=== PATIENT | male | born 1940 | race Caucasian/White ===

== ENCOUNTER 2016-07-07 09:19 | Outpatient (CLI) | payer MEDICARE ==
[2016-07-07 12:49] LABS: Hemoglobin A1c 7.8 % (4.0-6.0)
[2016-07-07 13:09] LABS: Anion Gap 14 mmol/L (10-20); BUN (Urea Nitrogen) 21 mg/dL (8.4-25.7); Calc. Creatinine Clearance 0 mL/min (70-130); Calcium 8.7 mg/dL (7.8-10.44); Carbon Dioxide 20 mmol/L (23-31); Chloride 111 mmol/L (98-107); Estimated GFR-MDRD 55; LDL Cholesterol, Calculated 139 mg/dL
== END 2016-07-07 09:20 | disposition home or self-care (01) ==
LOC: NAVSJIPCSP 09:19
PROVIDERS: ATTEND Internal Medicine
DX: I25.10 Atherosclerotic heart disease of native coronary artery without angina pectoris (principal); E11.52 Type 2 diabetes mellitus with diabetic peripheral angiopathy with gangrene; N18.3 Chronic kidney disease, stage 3 (moderate); Z79.899 Other long term (current) drug therapy
CPT/HCPCS: 36415; 80048; 80061; 83036

== ENCOUNTER 2016-10-14 09:25 | Outpatient (CLI) | payer MEDICARE ==
[2016-10-14 12:45] LABS: Hemoglobin A1c 8.9 % (4.0-6.0)
[2016-10-14 12:59] LABS: Anion Gap 16 mmol/L (10-20); BUN (Urea Nitrogen) 30 mg/dL (8.4-25.7); Calc. Creatinine Clearance 0 mL/min (70-130); Calcium 9.2 mg/dL (7.8-10.44); Carbon Dioxide 24 mmol/L (23-31); Cardiac Risk 4.5 (Less than 4.5); Chloride 106 mmol/L (98-107); Cholesterol 144 mg/dL (< 200 Desired); Estimated GFR-MDRD 41; Glucose 87 mg/dL (83-110); HDL Cholesterol 32 mg/dL (>60 Neg Risk); LDL Cholesterol, Calculated 89 mg/dL; Potassium 4.7 mmol/L (3.5-5.1); Sodium 141 mmol/L (136-145); Triglycerides 113 mg/dL (Less than 150)
[2016-10-14 13:50] LABS: #Basophils 0.1 thou/uL (0.0-0.2); #Eosinphils 0.2 thou/uL (0.0-0.7); #Lymphocytes 1.5 thou/uL (1.20-3.40); #Monocytes 0.7 thou/uL (0.11-0.59); #Neutrophils 3.9 thou/uL (1.40-6.50); %Basophils 1.3 % (0.0-1.0); %Eosinophils 3.4 % (0.0-10.0); %Monocytes 10.3 % (0.0-10.0); Hemoglobin 12.6 g/dL (14.0-18.0); Mean Corpuscular HGB CONC 32.6 g/dL (32.0-36.0); Mean Corpuscular Hemoglobin 27.4 pg (27.0-31.0); Mean Platelet Volume 7.9 fL (7.4-10.4); Platelet Count 223 thou/uL (130-400); RBC Distribution Width 12.8 % (11.5-14.5); Red Blood Cell (RBC) Count 4.61 mill/uL (4.70-6.10); White Blood Cell (WBC) Count 6.4 thou/uL (4.8-10.8)
[2016-10-14 14:15] LABS: ALT (SGPT) 13 U/L (0-55); AST (SGOT) 14 U/L (5-34); Albumin 4.2 g/dL (3.4-4.8); Alkaline Phosphatase 63 U/L (40-150); Bilirubin, Total 0.4 mg/dL (0.2-1.2); CRP (Inflammatory) Less than 0.50 mg/dL (= or < 0.5); Globulin 2.2 g/dL (2.4-3.5); Protein, Total 6.4 g/dL (5.8-8.1)
[2016-10-15 18:55] LABS: Creatinine, Urine 127.58 mg/dL (63-166); Microalbumin Urine 3.8 mg/dL (0.5-50.0); Microalbumin/Creat Ratio 29.8 mg/g (Less than 30)
== END 2016-10-14 09:26 | disposition home or self-care (01) ==
LOC: NAVSJIPCSP 09:25
PROVIDERS: ATTEND Internal Medicine
DX: E78.5 Hyperlipidemia, unspecified (principal); I11.0 Hypertensive heart disease with heart failure; E11.52 Type 2 diabetes mellitus with diabetic peripheral angiopathy with gangrene; Z79.899 Other long term (current) drug therapy
CPT/HCPCS: 36415; 80053; 80061; 82043; 83036; 85025; 85652; 86140

== ENCOUNTER 2016-11-24 10:49 | Outpatient (CLI) | payer MEDICARE ==
[2016-11-24 12:49] LABS: #Basophils 0.1 thou/uL (0.0-0.2); #Eosinphils 0.2 thou/uL (0.0-0.7); #Lymphocytes 1.1 thou/uL (1.20-3.40); #Monocytes 0.6 thou/uL (0.11-0.59); #Neutrophils 3.7 thou/uL (1.40-6.50); %Basophils 1.4 % (0.0-1.0); %Eosinophils 3.4 % (0.0-10.0); %Lymphocytes 19.3 % (21.0-51.0); %Neutrophils 65.8 % (42.0-75.0); Hemoglobin 12.8 g/dL (14.0-18.0); Mean Corpuscular HGB CONC 32.6 g/dL (32.0-36.0); Mean Corpuscular Hemoglobin 27.2 pg (27.0-31.0); Mean Corpuscular Volume 83.4 fl (80.0-94.0); Mean Platelet Volume 9.5 fL (7.4-10.4); Platelet Count 213 thou/uL (130-400); RBC Distribution Width 12.7 % (11.5-14.5); Red Blood Cell (RBC) Count 4.71 mill/uL (4.70-6.10); White Blood Cell (WBC) Count 5.6 thou/uL (4.8-10.8)
[2016-11-24 12:55] LABS: ALT (SGPT) 13 U/L (8-55); AST (SGOT) 12 U/L (5-34); Alkaline Phosphatase 66 U/L (40-150); Anion Gap 16 mmol/L (10-20); BUN (Urea Nitrogen) 27 mg/dL (8.4-25.7); Bilirubin, Total 0.3 mg/dL (0.2-1.2); Calc. Creatinine Clearance 0 mL/min (70-130); Calcium 9.1 mg/dL (7.8-10.44); Carbon Dioxide 22 mmol/L (23-31); Chloride 103 mmol/L (98-107); Estimated GFR-MDRD 38; Globulin 2.4 g/dL (2.4-3.5); Glucose 302 mg/dL (83-110); Potassium 4.7 mmol/L (3.5-5.1); Protein, Total 6.4 g/dL (5.8-8.1); Sodium 136 mmol/L (136-145)
== END 2016-11-24 10:50 | disposition home or self-care (01) ==
LOC: NAVSJIPCSP 10:49
PROVIDERS: ATTEND Internal Medicine
DX: I25.10 Atherosclerotic heart disease of native coronary artery without angina pectoris (principal); I13.10 Hypertensive heart and chronic kidney disease without heart failure, with stage 1 through stage 4 chronic kidney disease, or unspecified chronic kidney disease; N18.2 Chronic kidney disease, stage 2 (mild); Z79.899 Other long term (current) drug therapy
CPT/HCPCS: 36415; 80053; 83880; 85025

== ENCOUNTER 2017-01-12 09:25 | Outpatient (CLI) | payer MEDICARE ==
[2017-01-12 12:51] LABS: Anion Gap 18 mmol/L (10-20); BUN (Urea Nitrogen) 36 mg/dL (8.4-25.7); Calc. Creatinine Clearance 0 mL/min (70-130); Calcium 8.9 mg/dL (7.8-10.44); Carbon Dioxide 18 mmol/L (23-31); Cardiac Risk 5.9 (Less than 4.5); Chloride 104 mmol/L (98-107); Cholesterol 160 mg/dl (< 200 Desired); Estimated GFR-MDRD 36; Glucose 211 mg/dL (83-110); HDL Cholesterol 27 mg/dL (>60 Neg Risk); LDL Cholesterol, Calculated 82 mg/dL; Potassium 4.7 mmol/L (3.5-5.1); Sodium 135 mmol/L (136-145); Triglycerides 256 mg/dL (Less than 150)
== END 2017-01-12 09:26 | disposition home or self-care (01) ==
LOC: NAVSJIPCSP 09:25
PROVIDERS: ATTEND Internal Medicine
DX: E78.5 Hyperlipidemia, unspecified (principal); N18.3 Chronic kidney disease, stage 3 (moderate); E11.52 Type 2 diabetes mellitus with diabetic peripheral angiopathy with gangrene; Z79.899 Other long term (current) drug therapy
CPT/HCPCS: 36415; 80048; 80061; 83036

== ENCOUNTER 2019-11-17 11:30 | Outpatient (CLI) | payer MEDICARE ==
--- NOTE | 2019-11-17 12:08 | RAD ---
Exam: XR Ankle Rt 3 View STANDARD HISTORY: Right ankle pain. COMPARISON: None FINDINGS: There is diffuse subcutaneous soft tissue swelling about the ankle and visualized dorsal aspect of th e visualized midfoot. No acute fracture, dislocation, or other acute osseous abnormality is identified. Posterior and plantar calcaneal enthesophytes are identified. IMPRESSION: 1. Diffuse subcutaneous soft tissue swelling. 2. No acute osseous abnormality right ankle pain
--- NOTE | 2019-11-17 12:50 | RAD ---
3 VIEWS RIGHT FOOT: Date: 11/17/2019 COMPARISON: None. HISTORY: Right foot and ankle pain. FINDINGS: 3 views of the right foot show no evidence of acute fracture or dislocation. Mild degenerative change s are seen in the midfoot. Moderate dorsal soft tissue swelling is seen. IMPRESSION: No evidence of acute osseous abnormality. POS: [facility]
== END 2019-11-17 11:31 | disposition home or self-care (01) ==
LOC: NAV RAD 11:30
PROVIDERS: ATTEND Nurse Practitioner Adult Health
DX: S90.121A Contusion of right lesser toe(s) without damage to nail, initial encounter (principal); M25.571 Pain in right ankle and joints of right foot; M79.89 Other specified soft tissue disorders